=== PATIENT | male | born 1970 | race Caucasian/White ===

== ENCOUNTER 2025-02-10 18:05 | Inpatient (IN) ==
[2025-02-10 18:43] LABS: BASOPHILS # (AUTO) 0.1 10^3/uL (0.0-0.1); BASOPHILS % (AUTO) 0.3 %; HCT - HEMATOCRIT 37.7 % (42.0-52.0); LYMPHOCYTES # (AUTO) 0.8 10^3/uL (1.5-3.5); LYMPHOCYTES % (AUTO) 3.2 %; MEAN CORPUSCULAR HEMOGLOBIN 32.1 pg (27.0-31.0); MEAN CORPUSCULAR HGB CONC 34.5 g/dL (32.0-36.0); MEAN CORPUSCULAR VOLUME 93.1 fL (80.0-94.0); MEAN PLATELET VOLUME 8.4 fL (7.4-11.4); MONOCYTES # (AUTO) 2.2 10^3/uL (0.0-1.0); MONOCYTES % (AUTO) 9.3 %; NEUTROPHILS # (AUTO) 20.1 10^3/uL (1.5-6.6); NEUTROPHILS % (AUTO) 86.3 %; PLT - PLATELET COUNT 235 10^3/uL (130-450); RED BLOOD COUNT 4.05 10^6/uL (4.70-6.10); RED CELL DISTRIBUTION WIDTH 13.4 % (12.0-15.0); WHITE BLOOD COUNT 23.3 x10^3/uL (4.8-10.8)
[2025-02-10 18:56] LABS: SLIDE REVIEW? Indicated
[2025-02-10] MEDS: SODIUM CHLORIDE 0.9% 1,000 ML IV STA ×2 (18:59→23:40)
[2025-02-10 19:01] LABS: ALBUMIN 3.8 g/dL (3.2-5.5); ALBUMIN/GLOBULIN RATIO 1.4 (1.0-2.2); CALCIUM 8.6 mg/dL (8.5-10.3); POTASSIUM 3.5 mmol/L (3.5-4.5); TOTAL PROTEIN 6.6 g/dL (6.4-8.9)
--- NOTE | 2025-02-10 19:04 | ED Physician Documentation ---
History of Present Illness Stated complaint Stated Complaint: BILAT FOOT INFECTION Chief complaint Chief Complaint: Ext Problem History obtained from History obtained from: Patient and EMS History of Present Illness Pain level max: 8 Pain level now: 5 Additonal information Additional information: 54-year-old male with fever, chills and redness to the right lower extremity. Denies any IV drug use. Worse with movement, palpation, better with rest. He states he did drink vodka today. Denies any drug use. Patient states that he has chronic wounds on the bilateral feet. No cough or congestion. No abdominal pain. No nausea, vomiting, diarrhea. Has no calf pain or tenderness. No falls. No trauma. Review of Systems Constitutional Reports: Fever and Chills Respiratory Denies: Cough Gastrointestinal Denies: Vomiting Genitourinary Denies: Painful urination or Flank pain Meds/Allgy Allergies Allergies Allergy/AdvReac Type Severity Reaction Status Date / Time No Known Drug Allergies Allergy Verified 02/10/25 18:11 PFSH Active Problems All Active Problems (Updated 02/10/25 @ 21:05 by Dontae March MD) Cellulitis (Acute) Fever (Acute) Social History Social History Relationship: Do you feel safe in your home environment?: Yes Suffered physical, verbal, emotional, or financial abuse?: No Exam Exam Vital Signs: Vital Signs x48h Temp Pulse Resp BP Pulse Ox 02/10/25 22:00 89 16 102/62 92 02/10/25 20:14 93 104/55 L 91 L 02/10/25 18:11 39.6 C H 99 20 119/67 93 Constitutional normal general appearance and no apparent distress [facility] normocephalic, head/scalp atraumatic and oral mucous membranes normal Eyes PERRL Neck/C-Spine trachea midline Gastrointestinal abdomen normal to inspection, abdomen soft to palpation and nontender to palpation Genitourinary no CVA tenderness Back/Pelvis no thoracic spine tenderness and no lumbar spine tenderness Extremities Erythema, swelling to the anterior aspect of the right lower extremity. No pain with passive range of motion. No joint swelling or tenderness. Neurovascularly intact. No fluctuance. No crepitus. Otherwise normal examination of the extremities. Psychiatry oriented x3 Skin skin color normal Results Vitals Vitals: Vital Signs - 24 hr 02/10/25 18:11 02/10/25 20:14 02/10/25 22:00 Temperature 39.6 C H Temperature Source Temporal Artery Scan Pulse Rate 99 93 89 Respiratory Rate 20 16 Blood Pressure 119/67 104/55 L 102/62 O2 Saturation 93 91 L 92 O2 Source Room air Room air Room air Pain Intensity 5 Oxygen O2 Source Room air Labs Labs: Laboratory Tests 02/10/25 02/10/25 02/10/25 18:25 18:48 18:50 WBC 23.3 H RBC 4.05 L Hgb 13.0 L Hct 37.7 L MCV 93.1 MCH 32.1 H MCHC 34.5 RDW 13.4 Plt Count 235 MPV 8.4 Neut # (Auto) 20.1 H Lymph # (Auto) 0.8 L [place] # (Auto) 2.2 H Eos # (Auto) 0.0 Baso # (Auto) 0.1 Absolute Nucleated RBC 0.00 Band Neuts % (Manual) Not Reportable Abnorm Lymph % (Manual) Not Reportable Nucleated RBC % 0.0 Neutrophils # (Manual) Not Reportable Lymphocytes # (Manual) Not Reportable Monocytes # (Manual) Not Reportable Eosinophils # (Manual) Not Reportable Basophils # (Manual) Not Reportable Differential Comment MANUAL=AUTO DIFF Manual Slide Review Indicated Platelet Estimate NORMAL (130-450,000) Platelet Morphology NORMAL APPEARANCE RBC Morph Micro Appear 1+ STOMATOCYTES PT 12.8 H INR 1.2 APTT 27.0 Sodium 131 L Potassium 3.5 Chloride 98 L Carbon Dioxide 24 Anion Gap 9.0 BUN 14 Creatinine 1.0 Estimated GFR (MDRD) 78 L Glucose 111 H Lactic Acid 0.8 Calcium 8.6 Total Bilirubin 1.0 AST 24 ALT 18 Alkaline Phosphatase 58 Total Protein 6.6 Albumin 3.8 Globulin 2.8 Albumin/Globulin Ratio 1.4 Lipase 10 L Urine Color Urine Clarity Urine pH Ur Specific [place] Urine Protein Urine Glucose (UA) Urine Ketones Urine Occult Blood Urine Nitrite Urine Bilirubin Urine Urobilinogen Ur Leukocyte Esterase Urine RBC Urine WBC Ur Squamous Epith Cells Urine Bacteria Ur Microscopic Review Urine Culture Comments Nasal Adenovirus (PCR) NOT DETECTED Nasal B. parapertussis DNA (PCR) NOT DETECTED Nasal Coronavir 229E PCR NOT DETECTED Nasal Coronavir HKU1 PCR NOT DETECTED Nasal Coronavir NL63 PCR NOT DETECTED Nasal Coronavir OC43 PCR NOT DETECTED Nasal Enterovir/Rhinovir PCR NOT DETECTED Nasal Influenza B PCR NOT DETECTED Nasal Influenza A PCR NOT DETECTED Nasal Parainfluen 1 PCR NOT DETECTED Nasal Parainfluen 2 PCR NOT DETECTED Nasal Parainfluen 3 PCR NOT DETECTED Nasal Parainfluen 4 PCR NOT DETECTED Nasal RSV (PCR) NOT DETECTED Nasal B.pertussis DNA PCR NOT DETECTED Nasal C.pneumoniae (PCR) NOT DETECTED Theodore Human Metapneumo PCR NOT DETECTED Nasal M.pneumoniae (PCR) NOT DETECTED Nasal SARS-CoV-2 (PCR) NOT DETECTED 02/10/25 20:16 WBC RBC Hgb Hct MCV MCH MCHC RDW Plt Count MPV Neut # (Auto) Lymph # (Auto) [place] # (Auto) Eos # (Auto) Baso # (Auto) Absolute Nucleated RBC Band Neuts % (Manual) Abnorm Lymph % (Manual) Nucleated RBC % Neutrophils # (Manual) Lymphocytes # (Manual) Monocytes # (Manual) Eosinophils # (Manual) Basophils # (Manual) Differential Comment Manual Slide Review Platelet Estimate Platelet Morphology RBC Morph Micro Appear PT INR APTT Sodium Potassium Chloride Carbon Dioxide Anion Gap BUN Creatinine Estimated GFR (MDRD) Glucose Lactic Acid Calcium Total Bilirubin AST ALT Alkaline Phosphatase Total Protein Albumin Globulin Albumin/Globulin Ratio Lipase Urine Color YELLOW Urine Clarity HAZY Urine pH 6.0 Ur Specific [place] 1.015 Urine Protein 30 H Urine Glucose (UA) NEGATIVE Urine Ketones 15 H Urine Occult Blood TRACE-INTA Urine Nitrite NEGATIVE Urine Bilirubin SMALL H Urine Urobilinogen 0.2 (NORMAL) Ur Leukocyte Esterase NEGATIVE Urine RBC None Seen Urine WBC 0-3 Ur Squamous Epith Cells RARE Squamous Urine Bacteria None Seen Ur Microscopic Review INDICATED Urine Culture Comments NOT INDICATED Nasal Adenovirus (PCR) Nasal B. parapertussis DNA (PCR) Nasal Coronavir 229E PCR Nasal Coronavir HKU1 PCR Nasal Coronavir NL63 PCR Nasal Coronavir OC43 PCR Nasal Enterovir/Rhinovir PCR Nasal Influenza B PCR Nasal Influenza A PCR Nasal Parainfluen 1 PCR Nasal Parainfluen 2 PCR Nasal Parainfluen 3 PCR Nasal Parainfluen 4 PCR Nasal RSV (PCR) Nasal B.pertussis DNA PCR Nasal C.pneumoniae (PCR) Theodore Human Metapneumo PCR Nasal M.pneumoniae (PCR) Nasal SARS-CoV-2 (PCR) Rads (name of study) cxr: Relevant Findings:: Final report received PD Medical Decision Making ED course Complexity details: reviewed results, re-evaluated patient and d/w patient ED course: 54-year-old male with right lower extremity cellulitis as well as fever. Lactate normal. Given IV fluids. Given vancomycin and Unasyn. Respiratory panel does not show any acute abnormalities. White blood cell count of 23,000. Chest x-ray does not show any acute process. Mild hyponatremia. Given IV fluids. No inpatient beds are available tonight, therefore the patient will be boarded in the emergency department. Respiratory PCR is negative. Patient signed out to Dr. Harper for overnight care. This document was made in part using voice recognition software. While efforts are made to proofread this document, sound alike and grammatical errors may occur. Discharge Plan Discharge Patient Disposition: 66 [facility] DC/Xfer Condition: Stable Clinical Impression: Fever Qualifiers: Fever type: unspecified Qualified Code(s): R50.9 - Fever, unspecified Cellulitis Qualifiers: Site of cellulitis: extremity Site of cellulitis of extremity: lower extremity Laterality: right Qualified Code(s): L03.115 - Cellulitis of right lower limb Print Language: Swedish
[2025-02-10 19:07] LABS: INR 1.2 (0.8-1.2); PT - PROTHROMBIN TIME 12.8 secs (9.9-12.6)
--- NOTE | 2025-02-10 19:10 | XRAY Report ---
PROCEDURE: XR Chest 1V INDICATIONS: fever TECHNIQUE: One view of the chest was acquired. COMPARISON: None. FINDINGS: Surgical changes and devices: None. Lungs and pleura: No pleural effusions or pneumothorax. No consolidation. Mediastinum: Mediastinal contours appear normal. Heart size is normal. Bones and chest wall: No suspicious bony lesions. Overlying soft tissues appear unremarkable. IMPRESSION: No acute cardiopulmonary process. Reviewed by: Deb Crowder MD, PhD on 02/10/2025 7:09 PM PDT Approved by: Deb Crowder MD, PhD on 02/10/2025 7:09 PM PDT Station ID: [id number]
[2025-02-10 19:14] LABS: DIFFERENTIAL COMMENT MANUAL=AUTO DIFF; PLATELET ESTIMATE, MANUAL NORMAL (130-450,000) (NORMAL); PLATELET MORPHOLOGY NORMAL APPEARANCE (NORMAL); RBC MORPHOLOGY (MULTIPLE) 1+ STOMATOCYTES (NORMAL)
[2025-02-10 19:53] LABS: B. PARAPERTUSSIS- RESP PCR PAN NOT DETECTED; B. PERTUSSIS- RESP PCR PANEL NOT DETECTED; C. PNEUMONIAE- RESP PCR PANEL NOT DETECTED; CORONAVIRUS 229E-RESP PCR NOT DETECTED; CORONAVIRUS HKU1-RESP PCR NOT DETECTED; CORONAVIRUS NL63-RESP PCR NOT DETECTED; CORONAVIRUS OC43-RESP PCR NOT DETECTED; HUMAN METAPNEUMOVIRUS NOT DETECTED; INFLUENZA A- RESP PCR PANEL NOT DETECTED; INFLUENZA B - RESP PCR PANEL NOT DETECTED; M. PNEUMONIAE- RESP PCR PANEL NOT DETECTED; PARAINFLUENZA VIRUS 1 NOT DETECTED; PARAINFLUENZA VIRUS 2 NOT DETECTED; PARAINFLUENZA VIRUS 4 NOT DETECTED; RHINOVIRUS/ENTEROVIRUS NOT DETECTED; RSV- RESP PCR PANEL NOT DETECTED; SARS-CoV-2 -RESP PCR PANEL NOT DETECTED
[2025-02-10 20:23] LABS: BILIRUBIN,URINE SMALL (NEGATIVE); GLUCOSE, URINE (UA) NEGATIVE (NEGATIVE); KETONES,URINE (UA) 15 mg/dL (NEGATIVE); LEUKOCYTE ESTERASE, URINE NEGATIVE (NEGATIVE); NITRITE,URINE NEGATIVE (NEGATIVE); OCCULT BLOOD,URINE TRACE-INTA (NEGATIVE); PROTEIN,URINE 30 mg/dL (NEGATIVE); UROBILINOGEN,URINE 0.2 (NORMAL) E.U./dL (NORMAL)
[2025-02-10 20:26] LABS: CLARITY,URINE HAZY (CLEAR)
[2025-02-10 20:43] LABS: BACTERIA,URINE None Seen /HPF (None Seen); RBC,URINE None Seen /HPF (0-5); SQUAMOUS EPITHELIAL CELL,UR RARE Squamous (<= Few); WBC,URINE 0-3 /HPF (0-3)
[2025-02-10] MEDS: AMPICILLIN/SULBACTAM 3 GM in SODIUM CHLORIDE 0.9% MINIBAG 100 ML IV SCH (21:23)
[2025-02-10] MEDS: VANCOMYCIN INJ 1 GM in SODIUM CHLORIDE 0.9% 500 ML IV SCH (21:34)
[2025-02-10] MEDS ORDERED: VANCOMYCIN 1 GM VIAL ONE (21:35)
[2025-02-10] MEDS: VANCOMYCIN INJ 1.75 GM in SODIUM CHLORIDE 0.9% 500 ML IV STA (21:47)
--- NOTE | 2025-02-11 05:20 | ED Physician Documentation ---
ED Addendum Addendum Addendum: No acute events overnight. patient awaiting admission pending bed availability. plan to endorse to incoming daytime ed md at 7am shift change. Discharge Plan Discharge Patient Disposition: 66 [facility] DC/Xfer Condition: Stable Clinical Impression: Fever Qualifiers: Fever type: unspecified Qualified Code(s): R50.9 - Fever, unspecified Cellulitis Qualifiers: Site of cellulitis: extremity Site of cellulitis of extremity: lower extremity Laterality: right Qualified Code(s): L03.115 - Cellulitis of right lower limb Print Language: Turkmen
[2025-02-11 09:14] LABS: BASOPHILS % (AUTO) 0.4 %; EOSINOPHILS % (AUTO) 0.2 %; HCT - HEMATOCRIT 36.4 % (42.0-52.0); HGB - HEMOGLOBIN 12.3 g/dL (14.0-18.0); LYMPHOCYTES % (AUTO) 5.3 %; MEAN CORPUSCULAR HEMOGLOBIN 31.6 pg (27.0-31.0); MEAN CORPUSCULAR HGB CONC 33.8 g/dL (32.0-36.0); MEAN CORPUSCULAR VOLUME 93.6 fL (80.0-94.0); MEAN PLATELET VOLUME 8.5 fL (7.4-11.4); MONOCYTES % (AUTO) 10.3 %; NEUTROPHILS % (AUTO) 83.1 %; PLT - PLATELET COUNT 209 10^3/uL (130-450); RED BLOOD COUNT 3.89 10^6/uL (4.70-6.10); RED CELL DISTRIBUTION WIDTH 13.6 % (12.0-15.0); WHITE BLOOD COUNT 22.2 x10^3/uL (4.8-10.8)
[2025-02-11 09:27] LABS: CREATININE 0.8 mg/dL (0.6-1.3); MAGNESIUM 1.8 mg/dL (1.7-2.3); POTASSIUM 3.4 mmol/L (3.5-4.5)
[2025-02-11 09:30] LABS: ABNORMAL LYMPHS % (MANUAL) 0 %
[2025-02-11 09:40] LABS: BAND NEUTROPHILS % (MANUAL) 2 %; BASOPHILS # (MANUAL) 0.2 10^3/uL (0-0.1); BASOPHILS % (MANUAL) 1 %; DIFFERENTIAL COMMENT MANUAL DIFFERENTIAL; LYMPHOCYTES # (MANUAL) 0.9 10^3/uL (1.5-3.5); LYMPHOCYTES % (MANUAL) 4 %; MONOCYTES # (MANUAL) 1.8 10^3/uL (0.0-1.0); NEUTROPHILS # (MANUAL) 19.3 10^3/uL (1.5-6.6); PLATELET ESTIMATE, MANUAL NORMAL (130-450,000) (NORMAL); PLATELET MORPHOLOGY NORMAL APPEARANCE (NORMAL); RBC MORPHOLOGY (MULTIPLE) NORMAL APPEARANCE (NORMAL); WBC MORPHOLOGY (MULTIPLE) 1+ HYPERSEG NEUT (NORMAL)
[2025-02-11] MEDS: VANCOMYCIN INJ 1.25 GM in SODIUM CHLORIDE 0.9% 250 ML IV SCH (10:08)
--- NOTE | 2025-02-11 11:31 | PHARMACY PROGRESS NOTE ---
Best Possible Medication History Admit Date and Time: Home Medications Medication Instructions Recorded Confirmed Type No Known Home Medications 02/11/2501/16 History Processed by: Pharmacy (Medication Reconciliation completed by [facility] Room Working SupervisorJunaid) Medications reviewed in ED?: Yes Medication History completed: Yes Patient Interview: Completed Secondary Source(s): Insurance records [facility] Statement: As the person ultimately responsible for medication therapy, providers are able to order a medication from an existing home medication list in [facility] via the "Reconcile Routine" prior to Confirmation of that medication by family readiness support assistant. Such practice is discouraged except when the physician, in their clinical judgment, deems that a medical need exists for a medication without regard to previous use.
--- NOTE | 2025-02-11 12:16 | ED Physician Documentation ---
ED Addendum Addendum Addendum: The patient's legs are still red and swollen and tender. White count is still elevated though slightly lower than it was. The patient has been boarding for hospitalization for ongoing care of leg cellulitis. Medications have been ordered for him previously so no further needed today at this time. Awaiting the hospitalist or actually bed availability so that the hospitalist can assume care. Discharge Plan Discharge Patient Disposition: 66 [facility] DC/Xfer Condition: Stable Clinical Impression: Fever Qualifiers: Fever type: unspecified Qualified Code(s): R50.9 - Fever, unspecified Cellulitis Qualifiers: Site of cellulitis: extremity Site of cellulitis of extremity: lower extremity Laterality: right Qualified Code(s): L03.115 - Cellulitis of right lower limb Prescriptions: No Action No Known Home Medications Print Language: Belarusian
--- NOTE | 2025-02-11 13:02 | HISTORY & PHYSICAL EXAMINATION ---
Chief Complaint Chief Complaint Chief Complaint: Leg pain History of Present Illness History Obtained From History obtained from: ED notes Exam Limitations: Alcohol withdrawal History of Present Illness HPI Comment/Other: 54-year-old male who presented to the ED with fever, chills, redness to his right lower extremity per ER notes. On my exam he has redness on both legs. He has pain in his toes from sores caused by ill fitting shoes. He reports alcohol consumption, but denies drug use. 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 His speech is rambling, and very conspiratorial. Difficult to get an accurate ROS because of this. In the ER, he was noted to have cellulitic rash in his legs, worse on the right. Had a normal lactate but did have an elevated white blood cell count at 23,000. Had fever on presentation of 39.6. Chest x-ray was without acute process. He was held overnight in the ER due to lack of bed availability, and his WBCs have gone from 23.3-22.2 after day of Unasyn and vancomycin. Blood cultures were ordered by ER provider and are in process. Given his systemic symptoms of leukocytosis and fever as well as cellulitic source of infection, hospitalist was contacted for admission for sepsis secondary to cellulitis Meds/Allgy Home Medications Ambulatory Orders Medication Instructions Recorded Confirmed No Known Home Medications 02/11/2501/16 Allergies Allergies Allergy/AdvReac Type Severity Reaction Status Date / Time No Known Drug Allergies Allergy Verified 02/10/25 18:11 [facility] Active Problems All Active Problems (Updated 02/11/25 @ 16:24 by Tobi Barbosa DNP) Psychiatric disorder (Acute) Alcohol abuse (Acute) Sepsis (Acute) Cellulitis (Acute) Fever (Acute) Social History Social History Smoking Status: Current every day smoker Relationship: Do you feel safe in your home environment?: Yes Suffered physical, verbal, emotional, or financial abuse?: No Review of Systems Patient reported drinking alcohol to the ER provider. I believe patient is either in acute alcohol withdrawal or has undiagnosed psychiatric issues as he is currently rambling about his alleged work as a government contractor, and all of the classified things that he does Status of ROS: unobtainable due to mental status Exam Exam Vital Signs: Vital Signs x48h Temp Pulse Pulse Resp BP BP Pulse Ox 02/11/25 15:00 38.0 C H 95 18 100/50 L 94 02/11/25 14:24 104 H 16 99/74 95 02/11/25 12:15 87 104/65 93 02/11/25 10:00 91 20 105/49 L 93 02/11/25 08:00 90 20 96/47 L 95 Disheveled letter middle-aged man with poor hygiene. Dirt under his fingernails Constitutional no apparent distress HENMT normocephalic and head/scalp atraumatic Eyes PERRL Neck/C-Spine visual inspection normal Lymph no lymphadenopathy noted Chest inspection of chest normal and palpation of chest normal Respiratory breath sounds equal bilaterally Cardiovascular normal heart rate noted Gastrointestinal abdomen normal to inspection and abdomen soft to palpation Extremities Abrasions on the tops of his toes, dirty, scabbing over. Redness to both calves, worse on right Neurology GCS 15 Psychiatry oriented x3 Has paranoid delusions about the medications were giving him and about the government monitoring his life Skin Abrasions across all toes of both feet with redness in both legs Sepsis Event Note (H) Evaluation Current Stage of Sepsis: Sepsis Possible source of Sepsis: positive Skin/soft tissue Sepsis Criteria Sepsis Criteria: Recorded Temperature greater than 38.3C or Less than 36C, Recorded Heart Rate greater than 90 bpm and WBC count greater than 12,000 or less than 4000 Conclusion/Plan Problem List (1) Sepsis: Plan: Secondary to cellulitis of legs, manage as below Received 1 L NS bolus in the ER, with additional NS continuous Lactate was not elevated on presentation He meets sepsis criteria with his temperature 39.6 on admit and WBC of 23.3 I am empirically covering him with Zosyn and vancomycin as I cannot determine an accurate medical history and the patient is suspected unhoused (2) Cellulitis: Plan: Cellulitis likely secondary to abrasions on the top of his toes. When asked about this, he states that his boots do not fit comfortably and that is the cause of this I ordered x-rays of both feet which are negative for concern for osteomyelitis Zosyn, vancomycin for now Check MRSA screen Qualifiers: Laterality: right Site of cellulitis: extremity Site of cellulitis of extremity: lower extremity Qualified Code(s): L03.115 - Cellulitis of right lower limb (3) Alcohol abuse: Plan: He reported alcohol use to the ER provider On admission, 1/5 of vodka was found in his personal positions I have started him on CIWA protocol with as needed Ativan IV and p.o. Patient is extremely distrustful, I feel oral benzodiazepines would likely make him more agitated. 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
[2025-02-11] MEDS ORDERED: LORazepam 2 MG/ML VIAL IVP PRN (14:47)
[2025-02-11] MEDS ORDERED: ONDANSETRON 4 MG/2 ML VIAL IVP PRN (14:47)
[2025-02-11] MEDS ORDERED: ONDANSETRON ODT 4 MG TABLET TL PRN (14:47)
[2025-02-11] MEDS ORDERED: LORazepam 1 MG TABLET PO PRN (14:47)
--- NOTE | 2025-02-11 14:53 | XRAY Report ---
PROCEDURE: XR Foot 1-2V BL INDICATIONS: Eval for osteo, toes TECHNIQUE: 2 views of the bilateral feet were acquired. COMPARISON: None. FINDINGS: Bones: No fractures or dislocations. No suspicious bony lesions. No plain film evidence of osteomyelitis. Note made of a screw raising a remote healed medial malleolar fracture of the left ankle. Soft tissues: No tibiotalar joint effusion. Achilles tendon appears normal. IMPRESSION: No acute bony abnormality. No evidence of osteomyelitis of the toes. Reviewed by: Fernando Villanueva MD on 02/11/2025 2:51 PM PDT Approved by: Fernando Villanueva MD on 02/11/2025 2:51 PM PDT Station ID: [id number]
[2025-02-11] MEDS ORDERED: MULTIVITAMIN 10 ML, THIAMINE INJ 100 MG, MAGNESIUM SULFATE 2 GM, FOLIC ACID INJ 1 MG in... IV SCH (15:00)
[2025-02-11] MEDS: VANCOMYCIN INJ 1 GM, VANCOMYCIN INJ 250 MG in SODIUM CHLORIDE 0.9% 250 ML IV SCH (16:08)
[2025-02-11] MEDS: LACTATED RINGERS 1,000 ML IV SCH (16:36)
[2025-02-11] MEDS: SODIUM CHLORIDE FLUSH 0.9% 10 ML SYRINGE IVP SCH (16:40)
[2025-02-11] MEDS: PIPERACILLIN/TAZOBACTAM 4.5 GM in SODIUM CHLORIDE 0.9% MINIBAG 100 ML IV SCH (16:41)
[2025-02-11] MEDS: ACETAMINOPHEN 325 MG TABLET PO PRN (16:56)
[2025-02-11] MEDS: SODIUM CHLORIDE 0.9% 1,000 ML IV SCH (21:38)
[2025-02-11] MEDS: VANCOMYCIN INJ 1 GM, VANCOMYCIN INJ 500 MG in SODIUM CHLORIDE 0.9% 500 ML IV SCH (21:51)
[2025-02-12] MEDS: NICOTINE 14 MG PATCH TOP SCH (02:37)
[2025-02-12 05:44] LABS: BASOPHILS % (AUTO) 0.3 %; EOSINOPHILS % (AUTO) 0.7 %; HCT - HEMATOCRIT 36.3 % (42.0-52.0); HGB - HEMOGLOBIN 11.7 g/dL (14.0-18.0); LYMPHOCYTES % (AUTO) 6.4 %; MEAN CORPUSCULAR HEMOGLOBIN 31.1 pg (27.0-31.0); MEAN CORPUSCULAR HGB CONC 32.2 g/dL (32.0-36.0); MEAN CORPUSCULAR VOLUME 96.5 fL (80.0-94.0); MONOCYTES % (AUTO) 9.2 %; NEUTROPHILS % (AUTO) 82.7 %; PLT - PLATELET COUNT 228 10^3/uL (130-450); RED BLOOD COUNT 3.76 10^6/uL (4.70-6.10); RED CELL DISTRIBUTION WIDTH 13.5 % (12.0-15.0); WHITE BLOOD COUNT 22.1 x10^3/uL (4.8-10.8)
[2025-02-12 05:48] LABS: ABNORMAL LYMPHS % (MANUAL) 0 %
[2025-02-12 05:59] LABS: CREATININE 0.8 mg/dL (0.6-1.3); POTASSIUM 3.2 mmol/L (3.5-4.5)
[2025-02-12 06:18] LABS: BAND NEUTROPHILS % (MANUAL) 12 %; EOSINOPHILS # (MANUAL) 0.2 10^3/uL (0-0.7); LYMPHOCYTES # (MANUAL) 1.8 10^3/uL (1.5-3.5); LYMPHOCYTES % (MANUAL) 8 %; MONOCYTES # (MANUAL) 1.5 10^3/uL (0.0-1.0); NEUTROPHILS # (MANUAL) 18.6 10^3/uL (1.5-6.6)
[2025-02-12 06:19] LABS: DIFFERENTIAL COMMENT MANUAL DIFFERENTIAL
[2025-02-12] MEDS: PRENATAL VITAMIN TABLET PO SCH (08:08)
[2025-02-12] MEDS: THIAMINE 100 MG TABLET PO SCH (08:08)
[2025-02-12] MEDS: ENOXAPARIN 40 MG/0.4 ML SYRINGE SUBQ SCH (08:59)
[2025-02-12] MEDS ORDERED: VANCOMYCIN 1 GM VIAL ONE (10:01)
--- NOTE | 2025-02-12 13:05 | PROVIDER PROGRESS NOTE ---
Subjective Prog Note Date Prog Note Date: 02/12/25 Subjective Pt reports feeling: Improved Subjective: Reports feeling much clearer. He is able to have a coherent conversation about his plan of care before the conversation devolves into conspiracy theory Current Medications Current Medications Current Medications: Current Medications Generic Name Dose Route Start Last Admin Trade Name Freq PRN Reason Stop Dose Admin Acetaminophen 650 mg 02/11/25 14:47 02/12/25 07:07 Acetaminophen 325 Mg Tablet PO 650 mg Q4HR PRN Administration Pain 1 to 4, or Fever Enoxaparin Sodium 40 mg 02/12/25 09:00 02/12/25 08:59 Enoxaparin 40 Mg/0.4 Ml Syringe SUBQ 40 mg DAILY LESLEE Administration Piperacillin Sod/Tazobactam 100 mls @ 25 mls/hr 02/11/25 16:00 02/12/25 12:23 Sod 4.5 gm/ Sodium Chloride IV Infused Q8H LESLEE Infusion Vancomycin HCl 1 gm/ 500 mls @ 250 mls/hr 02/11/25 22:00 02/12/25 10:04 Vancomycin HCl 500 mg/ Sodium IV 250 mls/hr Chloride Q12H LESLEE Administration Sodium Chloride 1,000 mls @ 100 mls/hr 02/11/25 21:00 02/12/25 07:11 Normal Saline 0.9% IV 100 mls/hr .Q10H LESLEE Administration Lorazepam 2 mg 02/11/25 14:47 Lorazepam 2 Mg/Ml Vial IVP Q30M PRN CIWA >8 Protocol Lorazepam 1 mg 02/11/25 14:47 Lorazepam 1 Mg Tablet PO Q1H PRN CIWA > 8 Protocol Nicotine 1 patch 02/12/25 01:30 02/12/25 08:09 Nicotine 14 Mg Patch TOP 1 patch DAILY LESLEE Administration Ondansetron HCl 4 mg 02/11/25 14:47 Ondansetron Odt 4 Mg Tablet TL Q6HR PRN Nausea / Vomiting Ondansetron HCl 4 mg 02/11/25 14:47 Ondansetron 4 Mg/2 Ml Vial IVP Q6HR PRN Nausea / Vomiting Multivit/Folic Acid/Iron 1 tab 02/12/25 09:00 02/12/25 08:08 Vitamin Tablet PO 1 tab DAILY LESLEE Administration Sodium Chloride 10 ml 02/11/25 14:47 Sodium Chloride Flush 0.9% 10 Ml Syringe IVP PRN PRN NEEDED PER PROVIDER ORDERS Sodium Chloride 10 ml 02/11/25 17:00 02/12/25 10:04 Sodium Chloride Flush 0.9% 10 Ml Syringe IVP 10 ml 0100,0900,1700 LESLEE Administration Thiamine HCl 100 mg 02/12/25 09:00 02/12/25 08:08 Thiamine 100 Mg Tablet PO 100 mg DAILY LESLEE Administration Objective Vital Signs/Intake & Output Reviewed Vital Signs: Yes Vital Signs: Vital Signs x48h Temp Pulse Resp BP BP Pulse Ox 02/12/25 11:16 37.3 C 84 18 123/70 94 02/12/25 07:55 37.5 C 85 18 94/51 L 95 02/12/25 05:00 37.3 C 85 22 118/74 97 Intake & Output: Intake & Output 02/09/25 02/10/25 02/11/25 02/12/25 23:59 23:59 23:59 23:59 Intake Total 1600 / 1600 2405 / 2405 3335 / 3335 Output Total 350 / 350 1225 / 1225 Balance 1600 / 1600 2054 / 2054 2109 / 211 Weight (kg) 90 kg 90.5 kg Objective General Appearance: positive No acute distress, Alert and Other (Poor hygiene, dirt under fingernails) Eyes Bilateral: positive Normal inspection ENT: positive ENT inspection nml Neck: positive Nml inspection Respiratory: positive Chest non-tender Cardiovascular: positive Regular rate & rhythm Abdomen: positive Non-tender Skin: positive Other (Cellulitic rash on right leg) Extremities: positive Pedal edema (Swelling in right leg) Neurologic/Psychiatric: positive Oriented x3 and Other (Conversation starts off normal and then trails off into paranoia) Lab Results 02/12/25 05:17 02/12/25 05:17 Other Labs: Lab Results x24hrs 02/12/25 02/12/25 Range/Units 05:17 05:17 WBC 22.1 H (4.8-10.8) x10^3/uL RBC 3.76 L (4.70-6.10) 10^6/uL Hgb 11.7 L (14.0-18.0) g/dL Hct 36.3 L (42.0-52.0) % MCV 96.5 H (80.0-94.0) fL MCH 31.1 H (27.0-31.0) pg MCHC 32.2 (32.0-36.0) g/dL RDW 13.5 (12.0-15.0) % Plt Count 228 (130-450) 10^3/uL MPV 9.0 (7.4-11.4) fL Neut # (Auto) Not Reportable Lymph # (Auto) Not Reportable [place] # (Auto) Not Reportable Eos # (Auto) Not Reportable Baso # (Auto) Not Reportable Absolute Nucleated RBC Not Reportable Total Counted 100 Band Neuts % (Manual) 12 H (0 - 10) % Abnorm Lymph % (Manual) 0 % Nucleated RBC % Not Reportable Neutrophils # (Manual) 18.6 H (1.5-6.6) 10^3/uL Lymphocytes # (Manual) 1.8 (1.5-3.5) 10^3/uL Monocytes # (Manual) 1.5 H (0.0-1.0) 10^3/uL Eosinophils # (Manual) 0.2 (0-0.7) 10^3/uL Basophils # (Manual) 0.0 (0-0.1) 10^3/uL Differential Comment MANUAL DIFFERENTIAL WBC Morphology 1+ VACUOLATION 1+ HYPERSEG NEUT (NORMAL) Sodium 137 (135-145) mmol/L Potassium 3.2 L (3.5-4.5) mmol/L Chloride 106 (101-111) mmol/L Carbon Dioxide 25 (21-32) mmol/L Anion Gap 6.0 (6-13) BUN 12 (6-20) mg/dL Creatinine 0.8 (0.6-1.3) mg/dL Estimated GFR (MDRD) 100 (>89) Glucose 126 H (74-104) mg/dL Calcium 8.0 L (8.5-10.3) mg/dL Sepsis Event Note (H) Evaluation Current Stage of Sepsis: Sepsis Possible source of Sepsis: positive Skin/soft tissue Sepsis Criteria Sepsis Criteria: Recorded Temperature greater than 38.3C or Less than 36C, Recorded Heart Rate greater than 90 bpm and WBC count greater than 12,000 or less than 4000 Assessment/Plan Problem List (1) Sepsis: Impression: Met sepsis criteria due to temperature 39.6 on admit with WBC of 23.3 Secondary to cellulitis of legs VSS, good oral intake. Discontinuing IV fluids Lactate was not elevated on presentation Given that the most likely source is cellulitis, I am de-escalating his antibiotic to Rocephin daily, will continue vancomycin until after MRSA swab was collected (2) Cellulitis: Impression: De-escalating to Rocephin/vancomycin Check MRSA swab, de-escalate off of vancomycin if negative Given he has redness and unilateral leg swelling, I have added a ultrasound of the veins of his right leg to rule out DVT I also ordered a tetanus shot Qualifiers: Laterality: right Site of cellulitis: extremity Site of cellulitis of extremity: lower extremity Qualified Code(s): L03.115 - Cellulitis of right lower limb (3) Alcohol abuse: Impression: Unsure how much she drinks 750 mL bottle of vodka was confiscated from his personal belongings Continue CIWA protocol with as needed Ativan IV He originally presented to the ER early in the evening on the . He will be at the 48-hour pankaj since last drink later today (4) Psychiatric disorder: Impression: I suspect he has an underlying psychiatric disorder Today, he is able to hold brief conversations regarding plan of care before his conversation devolves into talk about government conspiracy theories, being watched, asking who all are government employees. He expressed some paranoia over the banana bag yesterday, stating that IV fluids are not supposed to be yellow. He is not aggressive with staff at this time When he is no longer withdrawing off of alcohol, he may benefit from telepsych eval
[2025-02-12] MEDS ORDERED: TETANUS IMMUNE GLOBULIN 250 UNIT SYRINGE IM ONE (13:12)
[2025-02-12] MEDS: TETANUS/DIPHTHERIA/PERTUSSIS 0.5 ML SYRINGE IM ONE (14:10)
--- NOTE | 2025-02-12 16:30 | Ultrasound Report ---
PROCEDURE: US Venous Duplex RT INDICATIONS: Leg swelling/redness TECHNIQUE: Real-time imaging, as well as color and pulse Doppler interrogation, were performed of the lower extremity deep veins from the inguinal ligament to the popliteal fossa. Attempted visualization of the calf veins was performed. COMPARISON: None. FINDINGS: The deep veins are normally compressible, and free of intraluminal thrombus. Color and pulse Doppler demonstrate normal phasic intraluminal flow. There is normal augmentation response to distal compression maneuver. IMPRESSION: No deep venous thrombosis of the visualized lower extremity. Reviewed by: Alex Martinez MD on 02/12/2025 3:29 PM [facility] Approved by: Alex Martinez MD on 02/12/2025 3:29 PM [facility]A Station ID: [id number]
[2025-02-12] MEDS: SODIUM CHLORIDE FLUSH 0.9% 10 ML SYRINGE IVP PRN (21:23)
[2025-02-12] MEDS: IBUPROFEN 600 MG TABLET PO PRN (21:23)
[2025-02-13 05:25] LABS: BASOPHILS # (AUTO) 0.1 10^3/uL (0.0-0.1); BASOPHILS % (AUTO) 0.3 %; EOSINOPHILS # (AUTO) 0.4 10^3/uL (0.0-0.7); EOSINOPHILS % (AUTO) 2.3 %; HCT - HEMATOCRIT 35.1 % (42.0-52.0); HGB - HEMOGLOBIN 11.6 g/dL (14.0-18.0); LYMPHOCYTES # (AUTO) 1.3 10^3/uL (1.5-3.5); LYMPHOCYTES % (AUTO) 7.3 %; MEAN CORPUSCULAR HEMOGLOBIN 31.5 pg (27.0-31.0); MEAN CORPUSCULAR VOLUME 95.4 fL (80.0-94.0); MEAN PLATELET VOLUME 9.2 fL (7.4-11.4); MONOCYTES # (AUTO) 1.6 10^3/uL (0.0-1.0); MONOCYTES % (AUTO) 8.8 %; NEUTROPHILS # (AUTO) 14.2 10^3/uL (1.5-6.6); NEUTROPHILS % (AUTO) 80.8 %; PLT - PLATELET COUNT 231 10^3/uL (130-450); RED BLOOD COUNT 3.68 10^6/uL (4.70-6.10); RED CELL DISTRIBUTION WIDTH 13.4 % (12.0-15.0); WHITE BLOOD COUNT 17.5 x10^3/uL (4.8-10.8)
[2025-02-13 05:51] LABS: CALCIUM 8.4 mg/dL (8.5-10.3); CREATININE 0.7 mg/dL (0.6-1.3); POTASSIUM 3.3 mmol/L (3.5-4.5)
[2025-02-13 06:48] LABS: DIFFERENTIAL COMMENT MANUAL=AUTO DIFF; PLATELET ESTIMATE, MANUAL NORMAL (130-450,000) (NORMAL); PLATELET MORPHOLOGY NORMAL APPEARANCE (NORMAL); RBC MORPHOLOGY (MULTIPLE) NORMAL APPEARANCE (NORMAL)
[2025-02-13 08:09] LABS: ADENOVIRUS F 40/41 Not Detected (Not Detected); ASTROVIRUS Not Detected (Not Detected); C DIFFICILE TOXIN A/B Not Detected (Not Detected); CAMPYLOBACTER Not Detected (Not Detected); CRYPTOSPORIDIUM Not Detected (Not Detected); CYCLOSPORA CAYETANENSIS Not Detected (Not Detected); ENTAMOEBA HISTOLYTICA Not Detected (Not Detected); ENTEROAGGREGATIVE E COLI Not Detected (Not Detected); ENTEROPATHOGENIC E COLI Not Detected (Not Detected); ENTEROTOXIGENIC E COLI Not Detected (Not Detected); GIARDIA LAMBLIA Not Detected (Not Detected); NOROVIRUS GI/GII Not Detected (Not Detected); PLESIOMONAS SHIGELLOIDES Not Detected (Not Detected); ROTAVIRUS A Not Detected (Not Detected); SALMONELLA Not Detected (Not Detected); SAPOVIRUS Not Detected (Not Detected); SHIGA-TOXIN-PRODUCING E COLI Not Detected (Not Detected); SHIGELLA/ENTEROINVASIVE E COLI Not Detected (Not Detected); VIBRIO Not Detected (Not Detected); VIBRIO CHOLERAE Not Detected (Not Detected); YERSINIA ENTEROCOLITICA Not Detected (Not Detected)
[2025-02-13] MEDS: cefTRIAXone 2 GM VIAL IVP SCH (08:34)
--- NOTE | 2025-02-13 14:55 | PROVIDER PROGRESS NOTE ---
Subjective Prog Note Date Prog Note Date: 02/13/25 Subjective Subjective: He tells me that he needs to leave here. 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 He quickly veers the conversation away from his health and what is needed to improve his status. RN found him earlier today soaking his foot in the commode bucket Current Medications Current Medications Current Medications: Current Medications Generic Name Dose Route Start Last Admin Trade Name Freq PRN Reason Stop Dose Admin Acetaminophen 650 mg 02/11/25 14:47 02/12/25 23:46 Acetaminophen 325 Mg Tablet PO 650 mg Q4HR PRN Administration Pain 1 to 4, or Fever Ceftriaxone Sodium 2 gm 02/13/25 09:00 02/13/25 08:34 Ceftriaxone 2 Gm Vial IVP 2 gm DAILY LESLEE Administration Enoxaparin Sodium 40 mg 02/12/25 09:00 02/13/25 08:34 Enoxaparin 40 Mg/0.4 Ml Syringe SUBQ 40 mg DAILY LESLEE Administration Ibuprofen 600 mg 02/12/25 20:57 02/12/25 21:23 Ibuprofen 600 Mg Tablet PO 600 mg Q6HR PRN Administration Moderate Pain (Level 4-6) Lorazepam 2 mg 02/11/25 14:47 Lorazepam 2 Mg/Ml Vial IVP Q30M PRN CIWA >8 Protocol Lorazepam 1 mg 02/11/25 14:47 Lorazepam 1 Mg Tablet PO Q1H PRN CIWA > 8 Protocol Nicotine 1 patch 02/12/25 01:30 02/13/25 08:34 Nicotine 14 Mg Patch TOP 1 patch DAILY LESLEE Administration Ondansetron HCl 4 mg 02/11/25 14:47 Ondansetron Odt 4 Mg Tablet TL Q6HR PRN Nausea / Vomiting Ondansetron HCl 4 mg 02/11/25 14:47 Ondansetron 4 Mg/2 Ml Vial IVP Q6HR PRN Nausea / Vomiting Multivit/Folic Acid/Iron 1 tab 02/12/25 09:00 02/13/25 08:35 Vitamin Tablet PO 1 tab DAILY LESLEE Administration Sodium Chloride 10 ml 02/11/25 14:47 02/12/25 21:23 Sodium Chloride Flush 0.9% 10 Ml Syringe IVP 10 ml PRN PRN Administration NEEDED PER PROVIDER ORDERS Sodium Chloride 10 ml 02/11/25 17:00 02/13/25 08:35 Sodium Chloride Flush 0.9% 10 Ml Syringe IVP 10 ml 0100,0900,1700 LESLEE Administration Thiamine HCl 100 mg 02/12/25 09:00 02/13/25 08:35 Thiamine 100 Mg Tablet PO 100 mg DAILY LESLEE Administration Objective Vital Signs/Intake & Output Reviewed Vital Signs: Yes Vital Signs: Vital Signs x48h Temp Pulse Resp BP Pulse Ox 02/13/25 09:00 37 C 82 18 137/74 H 98 Intake & Output: Intake & Output 02/10/25 02/11/25 02/12/25 02/13/25 23:59 23:59 23:59 23:59 Intake Total 1600 / 1600 2405 / 2405 5152 / 5152 1180 / 1180 Output Total 350 / 350 2925 / 2925 1400 / 1400 Balance 1600 / 1600 2054 / 2054 2227 / 2227 -220 / -220 Weight (kg) 90 kg 90.5 kg Objective General Appearance: positive No acute distress, Alert and Other Eyes Bilateral: positive Normal inspection and Conjunctivae nml ENT: positive ENT inspection nml Neck: positive Nml inspection Respiratory: positive No respiratory distress and Breath sounds nml Cardiovascular: positive Regular rate & rhythm Abdomen: positive Non-tender and No distention Skin: positive Other (right lower ext with erythema and 1+edema. There are multiple small scabbed over wounds about the legs and feet. the skin of the lower ext is wrinkled, such that the edema is decreasing) Extremities: positive Pedal edema; negative Joint swelling Neurologic/Psychiatric: positive Oriented x3 and Other (delusional) Lab Results 02/13/25 05:15 02/13/25 05:15 Other Labs: Lab Results x24hrs 02/13/25 02/12/25 02/12/25 Range/Units 05:15 13:22 13:19 WBC 17.5 H (4.8-10.8) x10^3/uL RBC 3.68 L (4.70-6.10) 10^6/uL Hgb 11.6 L (14.0-18.0) g/dL Hct 35.1 L (42.0-52.0) % MCV 95.4 H (80.0-94.0) fL MCH 31.5 H (27.0-31.0) pg MCHC 33.0 (32.0-36.0) g/dL RDW 13.4 (12.0-15.0) % Plt Count 231 (130-450) 10^3/uL MPV 9.2 (7.4-11.4) fL Neut # (Auto) 14.2 H (1.5-6.6) 10^3/uL Lymph # (Auto) 1.3 L (1.5-3.5) 10^3/uL Daniels # (Auto) 1.6 H (0.0-1.0) 10^3/uL Eos # (Auto) 0.4 (0.0-0.7) 10^3/uL Baso # (Auto) 0.1 (0.0-0.1) 10^3/uL Absolute Nucleated RBC 0.00 x10^3/uL Band Neuts % (Manual) Not Reportable Abnorm Lymph % (Manual) Not Reportable Nucleated RBC % 0.0 /100WBC Neutrophils # (Manual) Not Reportable Lymphocytes # (Manual) Not Reportable Monocytes # (Manual) Not Reportable Eosinophils # (Manual) Not Reportable Basophils # (Manual) Not Reportable Differential Comment MANUAL=AUTO DIFF Platelet Estimate NORMAL (130-450,000) (NORMAL) Platelet Morphology NORMAL APPEARANCE (NORMAL) RBC Morph Micro Appear NORMAL APPEARANCE (NORMAL) Sodium 140 (135-145) mmol/L Potassium 3.3 L (3.5-4.5) mmol/L Chloride 108 (101-111) mmol/L Carbon Dioxide 25 (21-32) mmol/L Anion Gap 7.0 (6-13) BUN 7 (6-20) mg/dL Creatinine 0.7 (0.6-1.3) mg/dL Estimated GFR (MDRD) 117 (>89) Glucose 126 H (74-104) mg/dL Calcium 8.4 L (8.5-10.3) mg/dL Nasal Screen MRSA (PCR) NEGATIVE (NEGATIVE) Stl C. cayetanensis PCR Not Detected (Not Detected) Stool Rotavirus A PCR Not Detected (Not Detected) Stl Adenov F 40/41 PCR Not Detected (Not Detected) Stool Astrovirus (PCR) Not Detected (Not Detected) Stool Campylobacter PCR Not Detected (Not Detected) Stl C. diff Tox A/B PCR Not Detected (Not Detected) Stool Cryptosporidium PCR Not Detected (Not Detected) Stl Sh Tox Pr E STEC PCR Not Detected (Not Detected) Stool E coli O157 PCR Not applicable (Not Detected) Stl Enterotoxigenic E PCR Not Detected (Not Detected) Stool EPEC (PCR) Not Detected (Not Detected) Stl E. histolytica PCR Not Detected (Not Detected) Stool Giardia Lamblia PCR Not Detected (Not Detected) Stl P. shigelloides PCR Not Detected (Not Detected) Stool Salmonella PCR Not Detected (Not Detected) Stool Sapovirus (PCR) Not Detected (Not Detected) Stl Shigella/EIEC PCR Not Detected (Not Detected) St Y.enterocolitica PCR Not Detected (Not Detected) Stool Vibrio (PCR) Not Detected (Not Detected) Stl Vibrio cholerae PCR Not Detected (Not Detected) Stl Enteroaggr Ecoli PCR Not Detected (Not Detected) Stl Norovirus GI/GII PCR Not Detected (Not Detected) Sepsis Event Note (H) Evaluation Current Stage of Sepsis: Sepsis Possible source of Sepsis: positive Skin/soft tissue Sepsis Criteria Sepsis Criteria: WBC count greater than 12,000 or less than 4000 Assessment/Plan Problem List (1) Sepsis: Impression: Met sepsis criteria due to temperature 39.6 on admit with WBC of 23.3. he has defervesced. Secondary to cellulitis of legs VSS, good oral intake. Discontinuing IV fluids Lactate was not elevated on presentation Vancomycin stopped as MRSA swab was negative. I am continuing rocephin. Blood cultures are negative thus far. 02/10/25 02/11/25 02/12/25 18:25 09:02 05:17 WBC 23.3 H 22.2 H 22.1 H 02/13/25 05:15 WBC 17.5 H (2) Cellulitis: Impression: De-escalating to Rocephin Right lower extremity venous duplex is negative for DVT Td updated. Qualifiers: Laterality: right Site of cellulitis: extremity Site of cellulitis of extremity: lower extremity Qualified Code(s): L03.115 - Cellulitis of right lower limb (3) Alcohol abuse: Impression: Unsure how much he drinks 750 mL bottle of vodka was confiscated from his personal belongings Continue CIWA protocol with as needed Ativan IV. He is not tremulous, does not appear to be having hallicinations, although he is delusional. (4) Psychiatric disorder: Impression: I suspect he has an underlying psychiatric disorder He is actively delusional. He remains oriented. (5) Encounter for screening involving social determinants of health (SDoH): Impression: This patient is unhoused and poorly groomed. He likely has a psychiatric disorder. His behaviors are impacting his medical conditions. His NOK is his mother, who's phone # is in the chart. I have spoken with his mother. She relates to me that she understands he is unhoused, and he is also unemployable. He spent at year at the [facility]. He was discharged on medications for his delusional schizophrenia, but has since stopped taking medications. I have spent 52 minutes in the care of this patient today. This includes time [id number], review and ordering of diagnostic imaging and laboratory studies and consultation with other providers. Monitoring the patient's signs symptoms, evaluation of medication effectiveness and patient's response to treatment.
[2025-02-14] MEDS: MELATONIN 3 MG TABLET PO ONE (03:02)
[2025-02-14 05:20] LABS: BASOPHILS # (AUTO) 0.1 10^3/uL (0.0-0.1); BASOPHILS % (AUTO) 0.4 %; EOSINOPHILS # (AUTO) 0.4 10^3/uL (0.0-0.7); HCT - HEMATOCRIT 31.4 % (42.0-52.0); HGB - HEMOGLOBIN 10.5 g/dL (14.0-18.0); LYMPHOCYTES % (AUTO) 13.3 %; MEAN CORPUSCULAR HEMOGLOBIN 31.8 pg (27.0-31.0); MEAN CORPUSCULAR HGB CONC 33.4 g/dL (32.0-36.0); MEAN CORPUSCULAR VOLUME 95.2 fL (80.0-94.0); MEAN PLATELET VOLUME 8.8 fL (7.4-11.4); MONOCYTES # (AUTO) 1.4 10^3/uL (0.0-1.0); MONOCYTES % (AUTO) 9.5 %; NEUTROPHILS # (AUTO) 10.9 10^3/uL (1.5-6.6); NEUTROPHILS % (AUTO) 73.2 %; PLT - PLATELET COUNT 299 10^3/uL (130-450); RED CELL DISTRIBUTION WIDTH 13.7 % (12.0-15.0); WHITE BLOOD COUNT 14.9 x10^3/uL (4.8-10.8)
[2025-02-14 05:39] LABS: CALCIUM 8.5 mg/dL (8.5-10.3); CREATININE 0.6 mg/dL (0.6-1.3); POTASSIUM 3.4 mmol/L (3.5-4.5)
--- NOTE | 2025-02-14 15:40 | PROVIDER PROGRESS NOTE ---
Subjective Prog Note Date Prog Note Date: 02/14/25 Subjective Subjective: He is not able to engage with me today. fixated on delusions regarding what he perceived to be his mission. He feels that his leg is getting better, but then goes right back to talking about his delusions. Current Medications Current Medications Current Medications: Current Medications Generic Name Dose Route Start Last Admin Trade Name Freq PRN Reason Stop Dose Admin Acetaminophen 650 mg 02/11/25 14:47 02/14/25 00:44 Acetaminophen 325 Mg Tablet PO 650 mg Q4HR PRN Administration Pain 1 to 4, or Fever Ceftriaxone Sodium 2 gm 02/13/25 09:00 02/14/25 09:11 Ceftriaxone 2 Gm Vial IVP 2 gm DAILY LESLEE Administration Enoxaparin Sodium 40 mg 02/12/25 09:00 02/14/25 09:10 Enoxaparin 40 Mg/0.4 Ml Syringe SUBQ 40 mg DAILY LESLEE Administration Ibuprofen 600 mg 02/12/25 20:57 02/14/25 00:45 Ibuprofen 600 Mg Tablet PO 600 mg Q6HR PRN Administration Moderate Pain (Level 4-6) Lorazepam 2 mg 02/11/25 14:47 Lorazepam 2 Mg/Ml Vial IVP Q30M PRN CIWA >8 Protocol Lorazepam 1 mg 02/11/25 14:47 Lorazepam 1 Mg Tablet PO Q1H PRN CIWA > 8 Protocol Nicotine 1 patch 02/12/25 01:30 02/14/25 09:10 Nicotine 14 Mg Patch TOP 1 patch DAILY LESLEE Administration Ondansetron HCl 4 mg 02/11/25 14:47 Ondansetron Odt 4 Mg Tablet TL Q6HR PRN Nausea / Vomiting Ondansetron HCl 4 mg 02/11/25 14:47 Ondansetron 4 Mg/2 Ml Vial IVP Q6HR PRN Nausea / Vomiting Multivit/Folic Acid/Iron 1 tab 02/12/25 09:00 02/14/25 09:08 Vitamin Tablet PO 1 tab DAILY LESLEE Administration Sodium Chloride 10 ml 02/11/25 14:47 02/12/25 21:23 Sodium Chloride Flush 0.9% 10 Ml Syringe IVP 10 ml PRN PRN Administration NEEDED PER PROVIDER ORDERS Sodium Chloride 10 ml 02/11/25 17:00 02/14/25 09:10 Sodium Chloride Flush 0.9% 10 Ml Syringe IVP 10 ml 0100,0900,1700 LESLEE Administration Thiamine HCl 100 mg 02/12/25 09:00 02/14/25 09:08 Thiamine 100 Mg Tablet PO 100 mg DAILY LESLEE Administration Objective Vital Signs/Intake & Output Reviewed Vital Signs: Yes Vital Signs: Vital Signs x48h Temp Pulse Resp BP Pulse Ox 02/14/25 15:30 36.8 C 87 18 138/82 H 100 Intake & Output: Intake & Output 02/11/25 02/12/25 02/13/25 02/14/25 23:59 23:59 23:59 23:59 Intake Total 2405 / 2405 5152 / 5152 2370 / 2370 1080 / 1080 Output Total 350 / 350 2925 / 2925 2100 / 2100 1875 / 1875 Balance 2054 / 2054 2227 / 2227 270 / 270 -795 / -795 Weight (kg) 90.5 kg Objective General Appearance: positive No acute distress and Alert Eyes Bilateral: positive Normal inspection ENT: positive ENT inspection nml Neck: positive Nml inspection Respiratory: positive No respiratory distress and Breath sounds nml Cardiovascular: positive Regular rate & rhythm Abdomen: positive No distention Skin: positive Other (right lower ext with erythema and 1+edema. erythema and warmth is not improved today. There are multiple small scabbed over wounds about the legs and feet. the skin of the lower ext is wrinkled, such that the edema is decreasing) Extremities: positive Pedal edema; negative Joint swelling Neurologic/Psychiatric: positive Oriented x3 and Other (vocalizes paranoid delusions) Lab Results 02/14/25 05:04 02/14/25 05:04 Other Labs: Lab Results x24hrs 02/14/25 Range/Units 05:04 WBC 14.9 H (4.8-10.8) x10^3/uL RBC 3.30 L (4.70-6.10) 10^6/uL Hgb 10.5 L (14.0-18.0) g/dL Hct 31.4 L (42.0-52.0) % MCV 95.2 H (80.0-94.0) fL MCH 31.8 H (27.0-31.0) pg MCHC 33.4 (32.0-36.0) g/dL RDW 13.7 (12.0-15.0) % Plt Count 299 (130-450) 10^3/uL MPV 8.8 (7.4-11.4) fL Neut # (Auto) 10.9 H (1.5-6.6) 10^3/uL Lymph # (Auto) 2.0 (1.5-3.5) 10^3/uL Stafford # (Auto) 1.4 H (0.0-1.0) 10^3/uL Eos # (Auto) 0.4 (0.0-0.7) 10^3/uL Baso # (Auto) 0.1 (0.0-0.1) 10^3/uL Absolute Nucleated RBC 0.00 x10^3/uL Nucleated RBC % 0.0 /100WBC Sodium 140 (135-145) mmol/L Potassium 3.4 L (3.5-4.5) mmol/L Chloride 107 (101-111) mmol/L Carbon Dioxide 27 (21-32) mmol/L Anion Gap 6.0 (6-13) BUN 8 (6-20) mg/dL Creatinine 0.6 (0.6-1.3) mg/dL Estimated GFR (MDRD) 140 (>89) Glucose 101 (74-104) mg/dL Calcium 8.5 (8.5-10.3) mg/dL Sepsis Event Note (H) Evaluation Current Stage of Sepsis: Sepsis Possible source of Sepsis: positive Skin/soft tissue Sepsis Criteria Sepsis Criteria: WBC count greater than 12,000 or less than 4000 Assessment/Plan Problem List (1) Sepsis: Impression: Met sepsis criteria due to temperature 39.6 on admit with WBC of 23.3. he has defervesced. Secondary to cellulitis of legs VSS, good oral intake. IV fluids discontinued Lactate was not elevated on presentation Vancomycin stopped as MRSA swab was negative. I am continuing rocephin. Blood cultures are negative thus far. 02/10/25 02/11/25 02/12/25 18:25 09:02 05:17 WBC 23.3 H 22.2 H 22.1 H 02/13/25 05:15 WBC 17.5 H Laboratory Tests 02/14/25 05:04 WBC 14.9 H (2) Cellulitis: Impression: Rocephin day #4. improvement of erythema is stagnant. he is elevating his legs this afternoon. Right lower extremity venous duplex is negative for DVT Td updated. Qualifiers: Laterality: right Site of cellulitis: extremity Site of cellulitis of extremity: lower extremity Qualified Code(s): L03.115 - Cellulitis of right lower limb (3) Alcohol abuse: Impression: Unsure how much he drinks 750 mL bottle of vodka was confiscated from his personal belongings I have discontinued ativan. He is not tremulous, does not appear to be having hallicinations, although he is delusional. (4) Psychiatric disorder: Impression: paranoid delusional schizophrenia, off meds. He is actively delusional. He remains oriented. (5) Encounter for screening involving social determinants of health (SDoH): Impression: This patient is unhoused and poorly groomed. has a psychiatric disorder. His behaviors are impacting his medical conditions. His NOK is his mother, who's phone # is in the chart. I have spoken with his mother. She relates to me that she understands he is unhoused, and he is also unemployable. He spent at year at the [facility]. He was discharged on medications for his delusional schizophrenia, but has since stopped taking medications. I have spent 26 minutes in the care of this patient today. This includes time [id number], review and ordering of diagnostic imaging and laboratory studies. Monitoring the patient's signs symptoms, evaluation of medication effectiveness and patient's response to treatment.
[2025-02-15 05:29] LABS: BASOPHILS % (AUTO) 0.5 %; EOSINOPHILS % (AUTO) 3.5 %; HCT - HEMATOCRIT 31.7 % (42.0-52.0); HGB - HEMOGLOBIN 10.6 g/dL (14.0-18.0); LYMPHOCYTES % (AUTO) 16.2 %; MEAN CORPUSCULAR HEMOGLOBIN 31.7 pg (27.0-31.0); MEAN CORPUSCULAR HGB CONC 33.4 g/dL (32.0-36.0); MEAN CORPUSCULAR VOLUME 94.9 fL (80.0-94.0); MONOCYTES % (AUTO) 9.4 %; NEUTROPHILS % (AUTO) 69.4 %; PLT - PLATELET COUNT 406 10^3/uL (130-450); RED BLOOD COUNT 3.34 10^6/uL (4.70-6.10); RED CELL DISTRIBUTION WIDTH 13.8 % (12.0-15.0); WHITE BLOOD COUNT 15.4 x10^3/uL (4.8-10.8)
[2025-02-15 05:50] LABS: BAND NEUTROPHILS % (MANUAL) 0 %
[2025-02-15 05:59] LABS: CREATININE 0.7 mg/dL (0.6-1.3); POTASSIUM 3.8 mmol/L (3.5-4.5)
[2025-02-15 06:05] LABS: ABNORMAL LYMPHS % (MANUAL) 1 %; EOSINOPHILS # (MANUAL) 0.6 10^3/uL (0-0.7); LYMPHOCYTES # (MANUAL) 2.5 10^3/uL (1.5-3.5); LYMPHOCYTES % (MANUAL) 15 %; MONOCYTES # (MANUAL) 0.8 10^3/uL (0.0-1.0); NEUTROPHILS # (MANUAL) 11.6 10^3/uL (1.5-6.6)
[2025-02-15 06:06] LABS: DIFFERENTIAL COMMENT MANUAL DIFFERENTIAL; PLATELET ESTIMATE, MANUAL NORMAL (130-450,000) (NORMAL); PLATELET MORPHOLOGY NORMAL APPEARANCE (NORMAL); RBC MORPHOLOGY (MULTIPLE) NORMAL APPEARANCE (NORMAL); WBC MORPHOLOGY (MULTIPLE) NORMAL APPEARANCE (NORMAL)
[2025-02-15] MEDS: LORazepam 2 MG/ML VIAL IVP ONE (06:34)
[2025-02-15] MEDS: MELATONIN 3 MG TABLET PO ONE (06:34)
[2025-02-15 08:17] VITALS: O2SAT 96
--- NOTE | 2025-02-15 11:26 | PROVIDER PROGRESS NOTE ---
Subjective Prog Note Date Prog Note Date: 02/15/25 Subjective Subjective: Previously this patient has been amenable to physical exam and treatment, however that has changed overnight. Today he is unable to engage with me at all verbally. When I ask him to please show me his leg he refuses to remove his pants. He becomes verbally and physically aggressive in his stance. 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 He does not want to show me his leg. He has refused to take any medication from the nurse. He removed his IV overnight. We have ordered oral Levaquin in hopes that we would be able to continue to perform serial exams on his leg and follow his white blood cell count. However at this point, he refuses to take Seroquel from the nurse. He has also refused oral Levaquin today. He has now been 24 hours without antibiotics. He is not medically clear from the standpoint of the cellulitis as he still has an elevated white blood cell count which is not coming down. Current Medications Current Medications Current Medications: Current Medications Generic Name Dose Route Start Last Admin Trade Name Freq PRN Reason Stop Dose Admin Acetaminophen 650 mg 02/11/25 14:47 02/14/25 00:44 Acetaminophen 325 Mg Tablet PO 650 mg Q4HR PRN Administration Pain 1 to 4, or Fever Ceftriaxone Sodium 2 gm 02/13/25 09:00 02/14/25 09:11 Ceftriaxone 2 Gm Vial IVP 2 gm DAILY LESLEE Administration Enoxaparin Sodium 40 mg 02/12/25 09:00 02/15/25 10:03 Enoxaparin 40 Mg/0.4 Ml Syringe SUBQ Not Given DAILY LESLEE Ibuprofen 600 mg 02/12/25 20:57 02/15/25 00:01 Ibuprofen 600 Mg Tablet PO 600 mg Q6HR PRN Administration Moderate Pain (Level 4-6) Nicotine 1 patch 02/12/25 01:30 02/15/25 09:54 Nicotine 14 Mg Patch TOP 1 patch DAILY LESLEE Administration Ondansetron HCl 4 mg 02/11/25 14:47 Ondansetron Odt 4 Mg Tablet TL Q6HR PRN Nausea / Vomiting Ondansetron HCl 4 mg 02/11/25 14:47 Ondansetron 4 Mg/2 Ml Vial IVP Q6HR PRN Nausea / Vomiting Multivit/Folic Acid/Iron 1 tab 02/12/25 09:00 02/15/25 09:54 Vitamin Tablet PO 1 tab DAILY LESLEE Administration Sodium Chloride 10 ml 02/11/25 14:47 02/12/25 21:23 Sodium Chloride Flush 0.9% 10 Ml Syringe IVP 10 ml PRN PRN Administration NEEDED PER PROVIDER ORDERS Sodium Chloride 10 ml 02/11/25 17:00 02/15/25 09:44 Sodium Chloride Flush 0.9% 10 Ml Syringe IVP Not Given 0100,0900,1700 LESLEE Thiamine HCl 100 mg 02/12/25 09:00 02/15/25 09:54 Thiamine 100 Mg Tablet PO 100 mg DAILY LESLEE Administration Objective Vital Signs/Intake & Output Reviewed Vital Signs: Yes Vital Signs: Vital Signs x48h Temp Pulse Resp BP Pulse Ox 02/15/25 08:00 36.8 C 77 18 132/81 H 96 Intake & Output: Intake & Output 02/12/25 02/13/25 02/14/25 02/15/25 23:59 23:59 23:59 23:59 Intake Total 5152 / 5152 2370 / 2370 1620 / 1620 240 / 240 Output Total 2925 / 2925 2100 / 2100 2150 / 2150 Balance 2227 / 2227 270 / 270 -530 / -530 240 / 240 Objective General Appearance: positive Other ( acutely psychotic) ENT: positive ENT inspection nml Respiratory: positive No respiratory distress Comments/Other: disshelved. he is wearing pants, a belt, and an overcoat. I can see that his right foot is swollen, but I cannot see his skin. He is not wearing a shirt. He has some shorts hanging from his neck by the nylon webbing belt that is attached to them, along with several small pouches/wallets. 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 He refuses to sit down, he refuses medications. He is using a raised voice and is moving towards me making direct eye contact. I am maintaining a distance of at least 4 feet from him, and keeping my body angled towards the door at a 45 degree angle. he continues to use aggressive words and body language, I therefore excused myself. Lab Results 02/15/25 04:42 02/15/25 04:42 Other Labs: Lab Results x24hrs 02/15/25 Range/Units 04:42 WBC 15.4 H (4.8-10.8) x10^3/uL RBC 3.34 L (4.70-6.10) 10^6/uL Hgb 10.6 L (14.0-18.0) g/dL Hct 31.7 L (42.0-52.0) % MCV 94.9 H (80.0-94.0) fL MCH 31.7 H (27.0-31.0) pg MCHC 33.4 (32.0-36.0) g/dL RDW 13.8 (12.0-15.0) % Plt Count 406 (130-450) 10^3/uL MPV 9.0 (7.4-11.4) fL Neut # (Auto) Not Reportable Lymph # (Auto) Not Reportable Bell # (Auto) Not Reportable Eos # (Auto) Not Reportable Baso # (Auto) Not Reportable Absolute Nucleated RBC Not Reportable Total Counted 100 Band Neuts % (Manual) 0 (0 - 10) % Abnorm Lymph % (Manual) 1 % Nucleated RBC % Not Reportable Neutrophils # (Manual) 11.6 H (1.5-6.6) 10^3/uL Lymphocytes # (Manual) 2.5 (1.5-3.5) 10^3/uL Monocytes # (Manual) 0.8 (0.0-1.0) 10^3/uL Eosinophils # (Manual) 0.6 (0-0.7) 10^3/uL Basophils # (Manual) 0.0 (0-0.1) 10^3/uL Differential Comment MANUAL DIFFERENTIAL WBC Morphology NORMAL APPEARANCE (NORMAL) Platelet Estimate NORMAL (130-450,000) (NORMAL) Platelet Morphology NORMAL APPEARANCE (NORMAL) RBC Morph Micro Appear NORMAL APPEARANCE (NORMAL) Sodium 139 (135-145) mmol/L Potassium 3.8 (3.5-4.5) mmol/L Chloride 102 (101-111) mmol/L Carbon Dioxide 30 (21-32) mmol/L Anion Gap 7.0 (6-13) BUN 8 (6-20) mg/dL Creatinine 0.7 (0.6-1.3) mg/dL Estimated GFR (MDRD) 117 (>89) Glucose 95 (74-104) mg/dL Calcium 9.0 (8.5-10.3) mg/dL Sepsis Event Note (H) Evaluation Current Stage of Sepsis: Sepsis Possible source of Sepsis: positive Skin/soft tissue Sepsis Criteria Sepsis Criteria: WBC count greater than 12,000 or less than 4000 Assessment/Plan Problem List (1) Sepsis: Impression: Met sepsis criteria due to temperature 39.6 on admit with WBC of 23.3. he has defervesced. Secondary to cellulitis of legs VSS, good oral intake. IV fluids discontinued Lactate was not elevated on presentation Vancomycin stopped as MRSA swab was negative. He has pulled out his IV. He is refused replacement of his IV. His mental health is impacting his medical care. His white blood cell count remains elevated. I am starting him on levofloxacin 750 mg daily for his cellulitis and will need to continue to observe for any worsening or recurrence of his systemic inflammatory response. He, however, left AMA. I considered detaining him and had requested the DCR for evaluation, however the patient then very quickly escalated, and walked out of the hospital. I think that to forcibly detain him puts staff at risk of harm, therefore, although he is a danger to himself, I will not detain him. (2) Cellulitis: Impression: Antibiotics day #5 (completed 5 d Rocephin) refused further abx. Right lower extremity venous duplex is negative for DVT Td updated. Qualifiers: Laterality: right Site of cellulitis: extremity Site of cellulitis of extremity: lower extremity Qualified Code(s): L03.115 - Cellulitis of right lower limb (3) Alcohol abuse: Impression: Unsure how much he drinks 750 mL bottle of vodka was confiscated from his personal belongings- he did not retrieve it prior to departure I have discontinued ativan. He is not tremulous, does not appear to be having hallicinations, although he is delusional. (4) Psychiatric disorder: Impression: paranoid delusional schizophrenia, off meds. He is actively delusional. His paranoia is worsening. I have requested telepsych consultation today. He refused to sign consent for telepsychiatry evaluation. He refused oral antipsychotics. (5) Encounter for screening involving social determinants of health (SDoH): Impression: This patient is unhoused and poorly groomed. has a psychiatric disorder. His behaviors are impacting his medical conditions. His NOK is his mother, who's phone # is in the chart. I have spoken with his mother on 02/13. She relates to me that she understands he is unhoused, and he is also unemployable. He spent at year at the [facility]. He was discharged on medications for his delusional schizophrenia, but has since stopped taking medications. I have spent 50 minutes in the care of this patient today. This includes time [id number], review and ordering of diagnostic imaging and laboratory studies, discussions with social work.
[2025-02-15] MEDS: levoFLOXacin 750 MG TABLET PO SCH (12:20)
--- NOTE | 2025-02-15 13:29 | PROVIDER PROGRESS NOTE ---
Progress Note Progress Note Progress Note: This is a 54 yo unhoused male with a history of delusional schizophrenia admitted to my service for lower extremity cellulitis. While admitted, he continues to have paranoid delusions, but has been complaint with care until last evening. Overnigt he has pulled out his IV and is refusing replacement. His WBC count is not improving. his lower extremity remains erythematous and swollen. I had a discussion with his mother several days ago. She was able to tell me that he has been diagnosed with delusional schizophrenia. He spent a year in [facility] and was discharged on meds, but has long since stopped taking them. he is unemployable. he is unable to maintain a stable living environment. I would appreciate recommendations from psychaitry for medications that can be used immediately, and on dc, assuming that he will take them. I would like to discharge him from the hospital in improved condition, instead of him leaving AMA.
[2025-02-15 13:44] VITALS: BP 125/78; TEMP 97.9
[2025-02-15] MEDS ORDERED: PRENATAL VITAMIN TABLET PO SCH (14:34)
[2025-02-15] MEDS: QUEtiapine 100 MG TABLET PO ONE (15:59)
--- NOTE | 2025-02-15 16:50 | Discharge Summary ---
"Discharge Summary Admit Date: 03/14/25 Discharge Date: 02/15/25 Discharging Provider: Xiomara Garcia PA-C Primary Care Provider: none Code Status: Attempt Resuscitation DIAGNOSES Discharge Diagnoses with Status of Each Condition: Sepsis, resolved Cellulitis, not medically clear for discharge Alcohol abuse Psychiatric disorder Encounter for screening involving social determinants of health HPI History of Present Illness: 54-year-old male who presented to the ED with fever, chills, redness to his right lower extremity per ER notes. On my exam he has redness on both legs. He has pain in his toes from sores caused by ill fitting shoes. He reports alcohol consumption, but denies drug use. 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 His speech is rambling, and very conspiratorial. Difficult to get an accurate ROS because of this. In the ER, he was noted to have cellulitic rash in his legs, worse on the right. Had a normal lactate but did have an elevated white blood cell count at 23,000. Had fever on presentation of 39.6. Chest x-ray was without acute process. He was held overnight in the ER due to lack of bed availability, and his WBCs have gone from 23.3-22.2 after day of Unasyn and vancomycin. Blood cultures were ordered by ER provider and are in process. Given his systemic symptoms of leukocytosis and fever as well as cellulitic source of infection, hospitalist was contacted for admission for sepsis secondary to cellulitis CONSULTS | PROCEDURES Procedures: Mom was in open chest x-ray: No acute cardiopulmonary process Bilateral foot x-rays: No acute bony abnormalities no evidence of osteomyelitis Right lower extremity venous duplex exam: No DVT HOSPITAL COURSE Hospital Course: (1) Sepsis: Met sepsis criteria due to temperature 39.6 on admit with WBC of 23.3. he has defervesced. Secondary to cellulitis of legs VSS, good oral intake. IV fluids discontinued Lactate was not elevated on presentation Vancomycin stopped as MRSA swab was negative. He has pulled out his IV. He is refused replacement of his IV. His mental health is impacting his medical care. His white blood cell count remains elevated. I am starting him on levofloxacin 750 mg daily for his cellulitis and will need to continue to observe for any worsening or recurrence of his systemic inflammatory response. He, however, left AMA. I considered detaining him and had requested the DCR for evaluation, however the patient then very quickly escalated, and walked out of the hospital. I think that to forcibly detain him puts staff at risk of harm, therefore, although he is a danger to himself, I will not detain him. (2) Cellulitis: Antibiotics day #5 (completed 5 d Rocephin) refused further abx. Right lower extremity venous duplex is negative for DVT Td updated. Qualifiers: Laterality: right Site of cellulitis: extremity Site of cellulitis of extremity: lower extremity Qualified Code(s): L03.115 - Cellulitis of right lower limb (3) Alcohol abuse: Unsure how much he drinks 750 mL bottle of vodka was confiscated from his personal belongings- he did not retrieve it prior to departure I have discontinued ativan. He is not tremulous, does not appear to be having hallicinations, although he is delusional. (4) Psychiatric disorder: paranoid delusional schizophrenia, off meds. He is actively delusional. His paranoia is worsening. I have requested telepsych consultation today. He refused to sign consent for telepsychiatry evaluation. He refused oral antipsychotics. (5) Encounter for screening involving social determinants of health (SDoH): This patient is unhoused and poorly groomed. has a psychiatric disorder. His behaviors are impacting his medical conditions. His NOK is his mother, who's phone # is in the chart. I have spoken with his mother on 02/13. She relates to me that she understands he is unhoused, and he is also unemployable. He spent at year at [facility]. He was discharged on medications for his delusional schizophrenia, but has since stopped taking medications. ALLERGIES Allergies Allergy/AdvReac Type Severity Reaction Status Date / Time No Known Drug Allergies Allergy Verified 02/10/25 18:11 MEDICATIONS Ambulatory Orders Medication Instructions Recorded Confirmed No Known Home Medications 02/11/25 05/05/11 PHYSICAL EXAM AT DISCHARGE Vital Signs: Vital Signs x48h Temp Pulse Resp BP Pulse Ox 02/15/25 13:43 36.6 C 78 18 125/78 96 Physical Exam Other/Comments: General Appearance: positive Other ( acutely psychotic) ENT: positive ENT inspection nml Respiratory: positive No respiratory distress Comments/Other: disshelved. he is wearing pants, a belt, and an overcoat. I can see that his right foot is swollen, but I cannot see his skin. He is not wearing a shirt. He has some shorts hanging from his neck by the nylon webbing belt that is attached to them, along with several small pouches/wallets. 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 He refuses to sit down, he refuses medications. He is using a raised voice and is moving towards me making direct eye contact. I am maintaining a distance of at least 4 feet from him, and keeping my body angled towards the door at a 45 degree angle. he continues to use aggressive words and body language, I therefore excused myself. LABS 02/15/25 04:42 02/15/25 04:42 SEPSIS Current Stage of Sepsis: Sepsis Possible source of Sepsis: Skin/soft tissue Sepsis Criteria: WBC count greater than 12,000 or less than 4000 TIME SPENT Time Spent in Discharge (Minutes): 45 Discharge Plan Discharge Patient Disposition: 07 Against Medical Advice Condition: Stable Prescriptions: No Action No Known Home Medications Print Language: Italian Stand Alone Forms: PCP List"
[2025-02-15] MEDS ORDERED: QUEtiapine 100 MG TABLET PO SCH (21:00)
== END 2025-02-15 16:30 | disposition left against medical advice (07) | DRG 872 ==
LOC: ED 18:05 → MS3 02-11 14:39
PROVIDERS: ADMIT Nurse Practitioner Acute Care; ATTEND Nurse Practitioner Acute Care
DX: S90.411A Abrasion, right great toe, initial encounter; S90.415A Abrasion, left lesser toe(s), initial encounter; S90.412A Abrasion, left great toe, initial encounter; X58.XXXA Exposure to other specified factors, initial encounter; L03.115 Cellulitis of right lower limb; Z91.148 Patient's other noncompliance with medication regimen for other reason; S90.414A Abrasion, right lesser toe(s), initial encounter; F10.10 Alcohol abuse, uncomplicated; Z56.0 Unemployment, unspecified; F17.200 Nicotine dependence, unspecified, uncomplicated; Z59.00 Homelessness unspecified; L03.116 Cellulitis of left lower limb; A41.9 Sepsis, unspecified organism; F20.0 Paranoid schizophrenia